=== PATIENT | male | born 1960 | race African-American/Black ===

== ENCOUNTER 2017-02-28 09:52 | Emergency (ER) | payer BC ==
[~2017-02-28] VITALS: Ht 180.3 cm; Wt 116.1 kg
[2017-02-28 10:01] VITALS: BP 185/95
[2017-02-28] MEDS ORDERED: VIT D2 1.25 MG (50,000 UNIT) (10:06)
[2017-02-28] MEDS ORDERED: SPIRONOLACTONE 25 MG TABLET (10:06)
[2017-02-28] MEDS ORDERED: ENALAPRIL MALEATE 20 MG TAB (10:06)
[2017-02-28] MEDS ORDERED: METFORMIN HCL 850 MG TABLET (10:06)
[2017-02-28] MEDS ORDERED: TAMSULOSIN HCL 0.4 MG CAPSULE (10:06)
--- NOTE | 2017-02-28 10:09 | NUR ---
Patient ambulated to bed 08.
[2017-02-28] MEDS ORDERED: ASPIRIN 81 MG TAB.CHEW PO ONE (10:10)
--- NOTE | 2017-02-28 10:10 | NUR ---
56/M BIB C/O SOB THAT WOKE HIM AT 0200 WITH DULL CHEST PAIN. SOB X1WK. ALSO STS NOTICED SWELLING IN BILAT ANKLES. HX CHRONIC LOWER BACK PAIN WITH 2 SX, DEFIBRILLATOR IN 2010, L SHOULDER SX X3, HTN, POSSIBLE DIABETES, PROSTATE PROBLEMS.DENIES N/V/D; SKIN IS PINK/WARM/DRY; AAOX4 WITH EVEN AND STEADY GAIT; LUNGS CLEAR BL; PATIENT STATES PAIN OF 2/10 AT THIS TIME; VSS; PATIENT POSITIONED FOR COMFORT; HOB ELEVATED; BEDRAILS UP X2; BED DOWN. ER MD MADE AWARE OF PT STATUS.
--- NOTE | 2017-02-28 10:12 | NUR ---
EKG AT BEDSIDE.
--- NOTE | 2017-02-28 10:18 | NUR ---
X RAY AT BEDSIDE.
[2017-02-28 10:44] LABS: BASOPHILS # (AUTO) 0.2 K/uL (0.00-0.22); BASOPHILS % (AUTO) 2.5 % (0.0-2.0); EOSINOPHILS # (AUTO) 0.4 K/uL (0-0.4); EOSINOPHILS % (AUTO) 4.5 % (0.0-4.0); HEMATOCRIT 44.5 % (36-52); HEMOGLOBIN 14.7 g/dL (12.0-18.0); LYMPHOCYTES # (AUTO) 2.3 K/uL (2.0-11.5); LYMPHOCYTES % (AUTO) 26.4 % (20.5-51.1); MEAN CORPUSCULAR HEMOGLOBIN 29 pg (27-31); MEAN CORPUSCULAR HGB CONC 33 g/dL (33-37); MEAN CORPUSCULAR VOLUME 87 fL (80-94); MONOCYTES # (AUTO) 0.8 K/uL (0.8-1.0); MONOCYTES % (AUTO) 9.5 % (1.7-9.3); NEUTROPHILS # (AUTO) 5.2 K/uL (1.8-7.7); NEUTROPHILS % (AUTO) 57.1 % (42.2-75.2); PLATELET COUNT (AUTO) 280 K/uL (140-450); RED BLOOD CELL COUNT(AUTO) 5.13 MIL/uL (4.20-6.10); RED CELL DISTRIBUTION WIDTH 12.8 % (11.6-13.7); WHITE BLOOD COUNT (AUTO) 8.9 K/uL (4.8-10.8)
[2017-02-28 11:00] LABS: ANION GAP 9.8 (8-16); CARBON DIOXIDE 32.7 mmol/L (21-32); CREATININE 0.9 mg/dL (0.7-1.3); POTASSIUM 4.5 mmol/L (3.5-5.1)
[2017-02-28 11:01] LABS: PROTHROMBIN TIME 10.8 secs (10.8-13.4)
[2017-02-28 11:05] LABS: ALBUMIN 3.4 g/dL (3.4-5.0); TOTAL BILIRUBIN 0.4 mg/dL (0.0-1.0)
--- NOTE | 2017-02-28 11:36 | NUR ---
Dr. Boyd evaluating patient at bedside.
[2017-02-28 11:50] VITALS: BP 161/90
--- NOTE | 2017-02-28 11:50 | NUR ---
Patient discharged with BP 161/90; DENIES HEADACHE AT THIS TIME. Written and verbal after care instructions given and explained. Patient verbalized understanding. Ambulatory with steady gait. All questions addressed prior to discharge. Advised to follow up with PMD.
== END 2017-02-28 11:50 | disposition home or self-care (01) ==
LOC: MED 09:52
DX: R06.02 Shortness of breath (principal); R07.9 Chest pain, unspecified; F17.210 Nicotine dependence, cigarettes, uncomplicated; E11.9 Type 2 diabetes mellitus without complications; I10 Essential (primary) hypertension; G89.29 Other chronic pain; Z95.0 Presence of cardiac pacemaker
CPT/HCPCS: 36415; 71010; 80053; 82948; 83880; 84484; 85025; 85610; 85730; 93005; 99285